=== PATIENT | male | born 1965 | race Caucasian/White ===

== ENCOUNTER 2016-07-14 09:56 | Emergency (ER) | payer OTHER ==
[~2016-07-14] VITALS: Wt 82.7 kg
[~2016-07-14 09:56] MED LIST: ENAL10TA PO; METO-53 PO
--- NOTE | 2016-07-14 11:07 | ERD ---
ER Documentation Chief Complaint Date/Time DATE: 07/14/16 TIME: 11:04 Chief Complaint R. hand lac HPI This patient is a [id number]-kruhmiml 50-year-old male with no significant medical history presenting to the emergency department for laceration to his right hand which occurred at approximately 8 AM. The patient states he was using a citrus juicer when he unintentionally sliced his hand. He states there was mild bleeding after the incident which was easily controlled with pressure. The patient denies any numbness, tingling, loss of function, or other injuries. The patient's pain level is a 4 out of 10 on the pain scale and his tetanus was updated approximately 1 year ago. ROS All systems reviewed and are negative except as per history of present illness. Medications Home Meds Active Scripts Hydrocodone/Acetaminophen (Pierson 5-325 Tablet) 1 Each Tablet, 1 TAB PO Q6H Y for PAIN, #6 TAB Prov:HILL ORANTES PA-C 07/14/16 Bacitracin* (Bacitracin Zinc Oint*) 28.35 Gm Oint, 1 APPLIC TOP BID for 5 Days, #1 TUB APPLI TO Prov:HILL ORANTES PA-C 07/14/16 Reported Medications Enalapril Maleate* (Enalapril Maleate*) 10 Mg Tablet, 10 MG PO DAILY 04/28/13 Metoprolol (Lopressor) 50 Mg Tablet, 50 MG PO DAILY 04/28/13 Allergies Allergies: Coded Allergies: No Known Drug Allergies (Verified Allergy, 04/28/13) PMhx/Soc History of Surgery: No Anesthesia Reaction: No Hx Neurological Disorder: No Hx Respiratory Disorders: No Hx Cardiac Disorders: Yes (HYPERTENTION, HYPOTENTION) Hx Psychiatric Problems: No Hx Miscellaneous Medical Probl: No Hx Alcohol Use: No Hx Substance Use: No Hx Tobacco Use: Yes (QUIT 16 YEARS AGO) Smoking Status: Former smoker FmHx Noncontributory for chief complaint Physical Exam Vitals Vital Signs Date Time Temp Pulse Resp B/P Pulse Ox O2 Delivery O2 Flow Rate FiO2 07/14/16 10:12 98.0 60 20 154/93 100 Physical Exam INITIAL VITAL SIGNS: Reviewed by me. GENERAL: Alert and interactive. No acute distress. HEAD: Head is normocephalic and atraumatic. EYES: EOMI. No scleral icterus. No conjunctival injection. ENT: Moist mucosa. NECK: Supple. Full range of motion. RESPIRATORY: Normal respiratory effort. Clear breath sounds bilaterally. No wheezing, rales, or rhonchi. CV: Regular rate and rhythm. Normal S1 S2. No S3 or S4. No murmurs. ABDOMEN: Soft, non-distended, non-tender. No guarding. No rebound. No masses. EXTREMITIES: No deformity. SKIN: There is a partial-thickness 3 cm laceration to the ventral surface of the right hand with mild active bleeding without any signs of ligamental or tendon involvement. NEUROLOGIC: Alert and oriented x 4. Speech is normal. Moves all extremities equally. No motor or sensory deficits noted. Procedures/MDM Laceration Repair by me: Anesthesia: 1% lidocaine locally Location: Ventral surface of right palm Tendon/Joint/Nerves: No injury Foreign body: None detected after copious irrigation and exploration Technique: Simple Interrupted Sutures Complexity: No subcutaneous sutures/mucosal repair/ edge excision Post Closure Length: 3 cm Patient's bleeding was easily controlled in the department and there is no indication of anemia. No evidence of compartment syndrome, neurologic injury, vascular injury, open joint, tendon laceration, or foreign body. Patient is appropriate for outpatient follow up. 48 hour wound check. Scar minimization instructions given. MDM: 42-year-old male presents to the emergency department for superficial laceration to the right palm. Wound edges were well approximated and there were no signs of foreign body. The laceration was closed with 5x4-0 nylon sutures. The patient was given a prescription for bacitracin and 6 tablets of Pierson for acute pain management. The patient tolerated the procedure well and his questions and concerns were addressed. The patient is hemodynamically stable for discharge home. Departure Diagnosis: Primary Impression: Laceration Condition: Stable Patient Instructions: Laceration, Hand Additional Instructions: Keep the area clean, dry, and covered. Return to the emergency department in 48 hours for wound recheck. Return to the department in 10-14 days for suture removal. Follow-up sooner if there is any discharge, redness, fevers or other signs of infection. Follow-up with your primary care physician within 1 week. Return to the emergency department immediately should you have any new or worsening symptoms, uncontrolled fevers, or other unexplained symptoms. Take all medications as directed. HILL ORANTES PA-C Jul 14, 2016 11:06
[2016-07-14] MEDS ORDERED: HYDR-906 PO (11:58)
[2016-07-14] MEDS ORDERED: BAC30OI TOP (11:58)
== END 2016-07-14 12:29 | disposition home or self-care (01) ==
LOC: FTE 09:56
DX: S61.411A Laceration without foreign body of right hand, initial encounter (principal); I10 Essential (primary) hypertension; W26.8XXA Contact with other sharp object(s), not elsewhere classified, initial encounter; Y92.9 Unspecified place or not applicable; Z87.891 Personal history of nicotine dependence
CPT/HCPCS: 12002; Z7502

== ENCOUNTER 2016-07-18 10:55 | Emergency (ER) | payer OTHER ==
[~2016-07-18] VITALS: Wt 78.0 kg
[~2016-07-18 10:55] MED LIST changes: +BAC30OI TOP; +HYDR-906 PO
--- NOTE | 2016-07-18 17:52 | ERD ---
ER Documentation Chief Complaint Date/Time DATE: 07/18/16 TIME: 17:48 Chief Complaint wound check on right hand . sutures in place. no fevers. HPI 50-year-old male with no significant past medical history presents the ED for a wound check of his right hand. States that he initially was trying to open a citrus juice or 2 days ago to make orange juice and actually cut the left side of his hand. States that he has 5 sutures. States that he is up-to-date with his tetanus vaccine. States that he has been taking the [place] as needed for pain as well as applying the bacitracin. Denies any fever, chills, loss of sensation, loss of range of motion, weakness, numbness or tingling. ROS All systems reviewed and are negative except as per history of present illness. Medications Home Meds Active Scripts Hydrocodone/Acetaminophen ([place] 5-325 Tablet) 1 Each Tablet, 1 TAB PO Q6H Y for PAIN, #6 TAB Prov:HILL ROANTES PA-C 07/14/16 Bacitracin* (Bacitracin Zinc Oint*) 28.35 Gm Oint, 1 APPLIC TOP BID for 5 Days, #1 TUB APPLI TO Prov:HILL ORANTES PA-C 07/14/16 Reported Medications Enalapril Maleate* (Enalapril Maleate*) 10 Mg Tablet, 10 MG PO DAILY 04/28/13 Metoprolol (Lopressor) 50 Mg Tablet, 50 MG PO DAILY 04/28/13 Allergies Allergies: Coded Allergies: No Known Drug Allergies (Verified Allergy, 04/28/13) PMhx/Soc Medical and Surgical Hx: pt denies Surgical Hx History of Surgery: No Anesthesia Reaction: No Hx Neurological Disorder: No Hx Respiratory Disorders: No Hx Cardiac Disorders: Yes (HYPERTENTION, HYPOTENTION) Hx Psychiatric Problems: No Hx Miscellaneous Medical Probl: No Hx Alcohol Use: No Hx Substance Use: No Hx Tobacco Use: No (QUIT 16 YEARS AGO) Smoking Status: Never smoker Physical Exam Vitals Vital Signs Date Time Temp Pulse Resp B/P Pulse Ox O2 Delivery O2 Flow Rate FiO2 07/18/16 11:06 98.4 61 20 144/76 98 Physical Exam Const: Pnb-gtt-ktunfacaj, well-nourished. In no acute distress. Head: Atraumatic, normocephalic Eyes: Normal Conjunctiva without injection ENT: Normal external ear, nose and mouth. Neck: Full range of motion. No meningismus. Resp: Clear to auscultation bilaterally. No wheezing, rhonchi, rales, or crackles. No accessory muscle use. No retractions. Cardio: Regular rate and rhythm, no murmurs Skin: No petechiae or rashes Back: No midline tenderness. No CVA tenderness. Ext: No cyanosis, or edema. 3 cm laceration with 5 sutures intact with no signs of dehiscence or erythema, edema. No purulent discharge noted. Cap refill less than 2 seconds. Distal pulses intact bilaterally. Neur: Awake and alert. Normal gait and coordination. Muscle strength 5/5. Sensation intact bilaterally. Psych: Normal Mood and Affect Procedures/MDM This is a 50-year-old male with no significant past medical history presents the ED for a wound check. Patient is afebrile and nontoxic-appearing. Patient has normal vital signs. Patient's laceration is healing appropriately with no signs of dehiscence. No evidence of cellulitis, sepsis, fractures, dislocations , compartment syndrome, neurologic injury, vascular injury, open joint, open fracture, tendon laceration, septic arthritis, osteomyelitis, DVT, foreign body , or other emergent conditions. Discharge medications: Follow up with primary care physician in 1-2 days. Instructed patient to return to the ED sooner for any worsening symptoms. Patient's questions were answered. Patient understood and agreed with discharge plan. Patient discharged stable. Departure Diagnosis: Primary Impression: Laceration re-check Condition: Stable Patient Instructions: Wound Check, Lac F/U (No Infection) Referrals: [facility] YOU HAVE RECEIVED A MEDICAL SCREENING EXAM AND THE RESULTS INDICATE THAT YOU DO NOT HAVE A CONDITION THAT REQUIRES URGENT TREATMENT IN THE EMERGENCY DEPARTMENT. FURTHER EVALUATION AND TREATMENT OF YOUR CONDITION CAN WAIT UNTIL YOU ARE SEEN IN YOUR DOCTORS OFFICE WITHIN THE NEXT 1-2 DAYS. IT IS YOUR RESPONSIBILITY TO MAKE AN APPOINTMENT FOR FOLOW-UP CARE. IF YOU HAVE A PRIMARY DOCTOR --you should call your primary doctor and schedule an appointment IF YOU DO NOT HAVE A PRIMARY DOCTOR YOU CAN CALL OUR PHYSICIAN REFERRAL HOTLINE AT IF YOU CAN NOT AFFORD TO SEE A PHYSICIAN YOU CAN CHOSE FROM THE FOLLOWING [facility] [address] [facility]. [place] [facility] [address] [facility] [address] [facility] [address] [facility] [address] [facility]. [facility] [address] [facility] [facility] YOU HAVE RECEIVED A MEDICAL SCREENING EXAM AND THE RESULTS INDICATE THAT YOU DO NOT HAVE A CONDITION THAT REQUIRES URGENT TREATMENT IN THE EMERGENCY DEPARTMENT. FURTHER EVALUATION AND TREATMENT OF YOUR CONDITION CAN WAIT UNTIL YOU ARE SEEN IN YOUR DOCTORS OFFICE WITHIN THE NEXT 1-2 DAYS. IT IS YOUR RESPONSIBILITY TO MAKE AN APPOINTMENT FOR FOLOW-UP CARE. IF YOU HAVE A PRIMARY DOCTOR --you should call your primary doctor and schedule and appointment IF YOU DO NOT HAVE A PRIMARY DOCTOR YOU CAN CALL OUR PHYSICIAN REFERRAL HOTLINE AT . IF YOU CAN NOT AFFORD TO SEE A PHYSICIAN YOU CAN CHOSE FROM THE FOLLOWING [facility] INSTITUTIONS: [facility] [address] [place] [address] [facility] [address] [place] [address] [facility] [address] [place] [address] [facility] URGENT CARE/SPECIALTIES Additional Instructions: FOLLOW UP in 8 days for suture removal.Return to this facility if you are not improving as expected. MARLA ARCHULETA PA-C Jul 18, 2016 17:51
== END 2016-07-18 14:00 | disposition home or self-care (01) ==
LOC: FTE 10:55
DX: Z48.01 Encounter for change or removal of surgical wound dressing (principal); I10 Essential (primary) hypertension; Z87.891 Personal history of nicotine dependence
CPT/HCPCS: 99281

== ENCOUNTER 2016-07-25 09:05 | Emergency (ER) | payer OTHER ==
[~2016-07-25] VITALS: Wt 80.0 kg
--- NOTE | 2016-07-25 09:34 | ERD ---
ER Documentation Chief Complaint Date/Time DATE: 07/25/16 TIME: 09:20 Chief Complaint SUTURE REMOVAL TO RIGHT HAND HPI 50 y/o male presents to ED for suture removal to his right hand. States that his suture was placed here in the emergency room last 07/14/2016. Denies headache, loss of consciousness, dizziness, blurry vision, changes in vision, photophobia, facial pain, ear pain, throat pain, difficulty swallowing, neck pain, shoulder pain, chest pain, cough, hemoptysis, abdominal pain, back pain, loss of appetite, nausea, vomiting, hematochezia, diarrhea, constipation, urinary symptoms, bladder and bowel incontinences, extremity weakness, extremity tenderness, numbness or tingling sensation, difficulty walking, recent travel, recent exposure to illness, fever, chills. Allergy: NKA PMH: Hypertension Medications: Enalapril, metoprolol Surgery: Denies Family history: Denies Primary Social History: Works at the [employer]. Denies smoking, use of alcohol, use of illegal drugs. ROS All systems reviewed and are negative except as per history of present illness. Medications Home Meds Active Scripts Hydrocodone/Acetaminophen ([place] 5-325 Tablet) 1 Each Tablet, 1 TAB PO Q6H Y for PAIN, #6 TAB Prov:HILL ORANTES PA-C 07/14/16 Bacitracin* (Bacitracin Zinc Oint*) 28.35 Gm Oint, 1 APPLIC TOP BID for 5 Days, #1 TUB APPLI TO Prov:HILL ORANTES PA-C 07/14/16 Reported Medications Enalapril Maleate* (Enalapril Maleate*) 10 Mg Tablet, 10 MG PO DAILY 04/28/13 Metoprolol (Lopressor) 50 Mg Tablet, 50 MG PO DAILY 04/28/13 Allergies Allergies: Coded Allergies: No Known Drug Allergies (Verified Allergy, Unknown, 07/25/16) PMhx/Soc History of Surgery: No Anesthesia Reaction: No Hx Neurological Disorder: No Hx Respiratory Disorders: No Hx Cardiac Disorders: Yes (HYPERTENTION, HYPOTENTION) Hx Psychiatric Problems: No Hx Miscellaneous Medical Probl: No Hx Alcohol Use: No Hx Substance Use: No Hx Tobacco Use: No (QUIT 16 YEARS AGO) Smoking Status: Former smoker Physical Exam Vitals Vital Signs Date Time Temp Pulse Resp B/P Pulse Ox O2 Delivery O2 Flow Rate FiO2 07/25/16 09:07 98.5 65 21 98 Physical Exam CONSTITUTIONAL: Well-appearing; well-nourished; in no apparent distress. HEAD: Normocephalic; atraumatic. EYES: Conjunctiva clear, sclera non-icteric, EOM intact. PERRL Ears: Hearing intact. EACs clear, TMs non-bulging, non-inflamed, translucent & mobile, ossicles normal appearance, No obstructions, no erythema, no discharges Nose: No obstructions. No polyps. No external lesions. Mucosa non-inflamed. No external lesions, septum and turbinates normal. No rhinorrhea. No discharges. Frontal sinus is non-tender to palpation. Maxillary sinus is non-tender to palpation. MOUTH: Moist mucous membranes, no lesion, no obstructions, no vesicles, no thrush, patent airway Throat: Uvula in midline. Right tonsil is +1 with no erythema, no exudate. Left tonsil is +1 with no erythema, no exudate. Tolerating secretions well. Good gag reflex. Patent airway. Neck: Supple, without lesions, bruits, or adenopathy. No mass. Thyroid non- enlarged and non-tender to palpation. CHEST: Symmetrical chest. Respirations even and not labored. No retractions noted. CARDIOVASCULAR: Normal S1, S2. RRR. No murmurs, gallops. RESPIRATORY: Normal chest excursion with respiration; breath sounds clear and equal bilaterally; no wheezes, rhonchi, or rales. Breathing even and unlabored. Speaking in clear, full, and complete sentences w/ ease. ABDOMEN: Normal bowel sounds normal. Soft, round, non-distended, non-guarding, no tenderness, no rebound, no organomegaly, no masses, no pulsating abdominal mass. No hernia. No peritoneal signs. : No CVA tenderness. BACK: Symmetrical shoulder. Spine is midline without deformity, tenderness. No evidence of trauma or deformity. PELVIS: Stable pelvis. No evidence of trauma or deformity. MUSCULOSKELETAL: Normal gait and station. No misalignment, asymmetry, crepitation, defects, tenderness, masses, effusions, decreased range of motion, instability, atrophy or abnormal strength or tone in the head, neck, spine, ribs , pelvis or extremities. No calf tenderness. NEUROVASCULAR: Distal pulses are present. Pedal pulse are present, equal, and normal. Capillary refills are < 2 seconds. NEUROLOGIC: Alert and oriented x4. Speaks full and clear sentences. Cranial Nerves II-XII normal. Sensation to pain, touch, and proprioception normal. Grossly unremarkable. No neurologic deficits. Romberg test is negative. PSYCHOLOGICAL: The patients mood and manner are appropriate. No hallucinations , delusions. Not SI. Not HI. Has the capacity to decide for self SKIN: Normal for age and ethnicity; warm; dry; good turgor; no apparent lesions or exudates. No rashes, hives, discoloration. Intact. Right hand volar aspect has 5 stitches stitches. There is no obvious signs and symptoms of bleeding and/ or infection. Procedures/MDM Examination: Unremarkable examination Disease process, medical treatment was explained to the patient and family member. They verbalized understanding and agreed with the diagnostic tests, medical treatment, and follow-up care. Treatment: Suture removal Re-evaluation: No obvious signs and symptoms of bleeding and/or infection. Consultation: None Differential diagnosis: Suture removal Medical decision [id number] y/o male presents to ED for suture removal to his right hand. States that his suture was placed here in the emergency room last . Final diagnosis is suture removal. paez of the side effects and adverse reactions of the medications prescribed. Instructed on when to seek emergent and medical attention in case allergic/ anaphylactic reactions or severe side effects and or adverse reactions to medications. Patient and family member verbalized understanding. Patient instructed Instructed to follow-up with his PCP in 24-48 hours. Instructed to Call 911 for chest pain, shortness of breath. Advised to come back here in ED as soon as possible for severity of symptoms which includes but not limited to: any new symptoms; shortness of breath/difficulty of breathing; cardiovascular changes; severe gastrointestinal symptoms; signs and symptoms of bleeding and or infection; signs of compartment syndrome/neurovascular changes; neurological changes/deficits. Patient and family member verbalized understanding. Upon discharge, patient is alert and oriented x 4, speaks full and clear sentences, denies pain, has no neurological deficits, has no neurovascular deficits, difficulty of breathing. Breathing even and unlabored. Lung sounds are clear to auscultation. Not in distress. Appears comfortable. Ambulatory with steady gait. Appears satisfied with care provided here in ED. Departure Diagnosis: Primary Impression: Suture check Additional Impression: Encounter for removal of sutures Condition: Good Additional Instructions: Follow-up with PCP in 24-48 hours. ELVIN BLANK Jul 25, 2016 09:34
== END 2016-07-25 09:50 | disposition home or self-care (01) ==
LOC: FTE 09:05
DX: Z48.02 Encounter for removal of sutures (principal); I10 Essential (primary) hypertension; Z87.891 Personal history of nicotine dependence
CPT/HCPCS: 99281

== ENCOUNTER 2016-08-09 08:29 | Emergency (ER) | payer OTHER ==
[~2016-08-09] VITALS: Wt 80.0 kg
--- NOTE | 2016-08-09 09:22 | ERD ---
ER Documentation Chief Complaint Date/Time DATE: 08/09/16 TIME: 09:18 Chief Complaint RECHECK OF SUTURED R HAND; SWELLING PER PT HPI This is a 50-year-old male who presents to the emergency department today complaining of some right hand swelling and pain the past 4 weeks. Patient had a laceration that he sustained almost one month ago and has had some swelling ever since that time. Patient state has not resolved. States he only took pain medication but no antibiotics. Denies any fevers or chills. ROS All systems reviewed and are negative except as per history of present illness. Medications Home Meds Active Scripts Cephalexin* (Keflex*) 500 Mg Capsule, 500 MG PO QID for 7 Days, CAP Prov:MARIBEL GUZMAN PA-C 08/09/16 Sulfamethoxazole-Trimethoprim* (Bactrim* DS) 800-160 Mg Tab, 1 TAB PO BID for 7 Days, TAB Prov:MARIBEL GUZMAN PA-C 08/09/16 Naproxen* (Naprosyn*) 500 Mg Tablet, 500 MG PO BID Y for PAIN AND/OR INFLAMMATION, #30 TAB Prov:MARIBEL GUZMAN PA-C 08/09/16 Hydrocodone/Acetaminophen ([place] 5-325 Tablet) 1 Each Tablet, 1 TAB PO Q6H Y for PAIN, #6 TAB Prov:HILL ORANTES PA-C 07/14/16 Bacitracin* (Bacitracin Zinc Oint*) 28.35 Gm Oint, 1 APPLIC TOP BID for 5 Days, #1 TUB APPLI TO Prov:HILL ORANTES PA-C 07/14/16 Reported Medications Enalapril Maleate* (Enalapril Maleate*) 10 Mg Tablet, 10 MG PO DAILY 04/28/13 Metoprolol (Lopressor) 50 Mg Tablet, 50 MG PO DAILY 04/28/13 Allergies Allergies: Coded Allergies: No Known Drug Allergies (Verified Allergy, Unknown, 07/25/16) PMhx/Soc History of Surgery: No Anesthesia Reaction: No Hx Neurological Disorder: No Hx Respiratory Disorders: No Hx Cardiac Disorders: Yes (HYPERTENTION, HYPOTENTION) Hx Psychiatric Problems: No Hx Miscellaneous Medical Probl: No Hx Alcohol Use: No Hx Substance Use: No Hx Tobacco Use: No (QUIT 16 YEARS AGO) Physical Exam Vitals Vital Signs Date Time Temp Pulse Resp B/P Pulse Ox O2 Delivery O2 Flow Rate FiO2 08/09/16 08:34 98.0 59 18 158/93 99 Physical Exam Const: No acute distress, pleasant Head: Atraumatic Eyes: Normal Conjunctiva ENT: Normal External Ears, Nose and Mouth. Neck: Full range of motion..~ No meningismus. Resp: Clear to auscultation bilaterally Cardio: Regular rate and rhythm, no murmurs Abd: Soft, non tender, non distended. Normal bowel sounds Skin: Right hand with evidence of healed laceration that is well approximated. No purulent drainage. No localized erythema. MSK: Right hand with no obvious deformity. Effusion over MCP joint second digit with tenderness to palpation over MCP. Decreased range of motion with flexion secondary to swelling. Full extension. Pulses 2+. Neur: Awake and alert Psych: Normal Mood and Affect Results 24 hrs DIAGNOSTIC IMAGING REPORT Patient: ANNA ABEL : 1965 Age: 50 Sex: M MR #: [id number] DOS: 08/09/16 0000 Ordering MD: MARIBEL GUZMAN PA-C Location: [facility] Room/Bed: PROCEDURE: XR Hand. CLINICAL INDICATION: Pain and swelling. Trauma 4 weeks ago. TECHNIQUE: Three views of the right hand were obtained. COMPARISON: No prior studies are available for comparison. FINDINGS: There is no acute osseous or articular abnormality. No evidence for fracture. Bone mineral density is preserved. The articular surfaces are smooth without evidence of marginal erosions. There is soft tissue swelling at the dorsal aspect of the MCP joints. IMPRESSION: 1. No acute osseous abnormality. 2. Soft tissue swelling dorsal to the MCP joints. RPTAT: TT .Santana Kitchen MD, MD Date Time Electronically viewed and signed by .Santana Kitchen MD, MD on 08/09/2016 09:44 .d/ CC: MARIBEL GUZMAN PA-C Procedures/MDM This is a 50-year-old male who presents to the emergency department today complaining of some right hand swelling and pain over his second digit for the past 4 weeks. Patient was seen here on July 14 for a laceration that he sustained while pushing down on a juicer. No imaging was obtained at that time. Patient was not given antibiotics at that time. Patient returned on July 18 for a wound check and wound appeared to be healing well at that time. Patient again returned on November 30 for suture removal. Patient at that time was up-to- date on his tetanus. Today on physical exam patient does have some pain and swelling over his second digit and therefore did obtain imaging. Per the radiology report images of the right hand showed no acute fracture or dislocation. The articular surfaces are smooth without evidence of marginal erosions. There is soft tissue swelling at the dorsal aspect of the MCP joints. Vision symptoms at this time consistent with strain versus sprain versus contusion and swelling secondary to injury sustained with hand juicer and laceration. Low suspicion for osteomyelitis, septic joint or gout. Patient is afebrile and otherwise well appearing.Patient has full extension and he is able to flex his finger that was suspicion for flexor tenosynovitis. Patient was never placed on antibiotics and I will give him a prescription for Keflex and Bactrim today to see about and helps improve the pain and swelling on arrival was suspicion for sepsis or deep space infection. Patient is afebrile and otherwise well appearing. I will also give the patient referral information for the hand clinic. Dr. Khanna has seen and evaluated the patient and he is in agreement with the plan. Departure Diagnosis: Primary Impression: Swelling of right hand Condition: MARIBEL Castillo PA-C Aug 09, 2016 09:22
--- NOTE | 2016-08-09 09:44 | RADRPT ---
PROCEDURE: XR Hand. CLINICAL INDICATION: Pain and swelling. Trauma 4 weeks ago. TECHNIQUE: Three views of the right hand were obtained. COMPARISON: No prior studies are available for comparison. FINDINGS: There is no acute osseous or articular abnormality. No evidence for fracture. Bone mineral density is preserved. The articular surfaces are smooth without evidence of marginal erosions. There is sof t tissue swelling at the dorsal aspect of the MCP joints. IMPRESSION: 1. No acute osseous abnormality. 2. Soft tissue swelling dorsal to the MCP joints. RPTAT: TT .Santana Kitchen MD, Date Time Electronically viewed and signed by .Santana Kitchen MD, MD on 08/09/2016 09:44 .d/
[2016-08-09] MEDS ORDERED: BACTDS PO (10:00)
[2016-08-09] MEDS ORDERED: NAPR-260 PO (10:00)
[2016-08-09] MEDS ORDERED: CEPH-443 PO (10:01)
== END 2016-08-09 10:13 | disposition home or self-care (01) ==
LOC: FTE 08:29
DX: R22.31 Localized swelling, mass and lump, right upper limb (principal); I10 Essential (primary) hypertension; Z87.891 Personal history of nicotine dependence
CPT/HCPCS: 73130; Z7502

== ENCOUNTER 2016-08-19 09:57 | Emergency (ER) | payer OTHER ==
[~2016-08-19] VITALS: Wt 81.0 kg
[~2016-08-19 09:57] MED LIST changes: +BACTDS PO; +CEPH-443 PO; +NAPR-260 PO
--- NOTE | 2016-08-19 13:58 | ERD ---
DATE OF SERVICE: 08/19/2016 HISTORY OF PRESENT ILLNESS: The patient is a 50-year-old male complaining of difficulty opening his right hand secondary to sutures placed on his right palm 5 weeks ago. Patient states that he has h ad no fevers. No pain at the site, but is concerned because he is unable to completely open his rig ht hand. He denies any weakness. He is able to move his fingers without any difficulty. He has no t seen a specialist and has not seen any other doctors. PAST MEDICAL HISTORY: Denies any other medical problems. ALLERGIES TO MEDICATIONS: DENIES. PAST SURGICAL HISTORY: Denies. HOSPITALIZATION: Denies. REVIEW OF SYSTEMS: A 12-point review of systems was done. Refer to HPI for positives, all other sy stems negative. PHYSICAL EXAMINATION: VITAL SIGNS: Temperature is 98.8, pulse 53, blood pressure is 160/84, respiratory rate 20, O2 satur ation 100% on room air. Pain intensity is 6/10. GENERAL: The patient is well-appearing, well-nourished, no acute distress. EXTREMITIES: There appears to be scar tissue causing a contraction of the right palm proximal to th e 2nd digit between the second digit distal and the thumb distal to the thenar muscle. The patient has normal range of motion with normal flexion, extension with active and passive range of motion of the right 5 digits. The patient is neurovascularly intact. Pulses are intact. Compartments are s oft. There is no surrounding erythema or fluctuance. CHEST: Clear to auscultation bilaterally. There are no rales, wheezes or rhonchi. HEART: Regular rate and rhythm. No murmurs, clicks, rubs or gallops. No S3 or S4. SKIN: There is no apparent rash or petechia. The skin is warm and dry. DIAGNOSIS: Scar tissue contracture. MEDICAL DECISION MAKING: I did not feel that there was indication for me to release this scar tissu e and recommended to see by specialist. I will refer patient to [facility] hand specialist as I hav e low suspicion for tendon or ligament injury; low suspicion for underlying infection. DISCHARGE: The patient is discharged stable. Patient is told to follow up with [facility] hand spe cialist and told to return if symptoms change or worsen. Patient was told that he would need to be seen by specialist as his condition is out of my range of practice. All other questions answered at time of discharge. Discharge summary given at the time of departure. Patient understood and compl ied with plan. Dictated By: ANNA SPENCER for MERCEDES WANG/SWAPNIL Conf#: [id number] DID#: [id number]
== END 2016-08-19 14:37 | disposition home or self-care (01) ==
LOC: FTE 09:57
DX: L90.5 Scar conditions and fibrosis of skin (principal)
CPT/HCPCS: 99282